=== PATIENT | female | born 1960 | race Caucasian/White ===

== ENCOUNTER 2016-06-01 15:09 | Emergency (ER) | payer OTHER ==
[~2016-06-01 15:09] MED LIST: CENTRUM SILVER PO; PRILOSEC20 MG PO; SERTRALINE HCL25 MG PO; SPIRIVA18 MCG INH; VENTOLIN HFA IN
--- NOTE | 2016-06-01 16:20 | ED NURSING NOTES ---
Clinical Report - Nurses [facility] [place] [address] 06/01/2016 15:11 Patient: TEDDY MAGANA TRIAGE Triage time 15:14. Acuity: LEVEL 3. Chief Complaint: CHEMICAL EXPOSURE. Alert. No acute distress. SANJEEV COMA SCORE: Sanjeev Coma Scale: 15- eyes open spontaneously (4); best verbal response- oriented x 4 (5); best motor response- obeys commands (6). --15:19 Erlinda Sandhu R.N. 15:13 06/01/16. BP: 129/67. HR: 100. RR: 18. O2 saturation: 97% on room air. Pain level now: 05/19. --15:19 Erlinda Sandhu R.N. 15:20 06/01/16. Temp: 98.2 F (oral). --15:21 Erlinda Sandhu R.N. Weight: 54.4 kg stated. Height/Length: 64 inches Per Patient. BMI: 20.6. --15:17 Erlinda Sandhu R.N. Medications Albuterol Sulfate HFA Inhalation 2 puffs, 2x a day. Spiriva HandiHaler Inhalation. --15:15 Erlinda Sandhu R.N. Medication/allergy information source: the patient. --15:19 Erlinda Sandhu R.N. Allergies None. --15:15 Erlinda Sandhu R.N. History Arrived by private vehicle. Historian: patient. Unaccompanied. Primary physician (August). This occurred today (at about 1330). Occurred at work ([facility] [employer]). ( flushed her eyes for about 5 minutes, then rinsed at eye station for 5 more min). She has had a headache and eye discomfort. ( eyes feel "dry"). Trauma activation: Pre-hospital notification of patient arrival was not received. PAST MEDICAL HX: The patient is post-menopausal. SOCIAL HX: Heavy tobacco smoker- 1 pack per day. No alcohol use or drug use. FALL RISK ASSESSMENT: Fall risk assessment completed. No fall risk identified. FUNCTIONAL ASSESSMENT: Functional assessment: no impairments noted. LEARNING NEEDS ASSESSMENT: The learning needs assessment revealed no barriers. --15:19 Erlinda Sandhu R.N. Assessment GENERAL / NEURO / PSYCH: Alert. Oriented X 4. Appears in no acute distress. Patient appears calm and cooperative. RESPIRATORY: Respirations not labored. SKIN: Skin is warm and dry. --15:19 Erlinda Sandhu R.N. Interventions ID band on patient. To treatment room. --15:19 Erlinda Sandhu R.N. PHYSICAL ASSESSMENT 15:19 06/01/16. Ambulatory to room. GENERAL / NEURO / PSYCH: Alert. Oriented X 4. Appears in no acute distress. RESPIRATORY: Respirations not labored. SKIN: Skin is warm and dry. --15:19 Erlinda Sandhu R.N. 15:40 06/01/16. HEENT: Visual acuity with corrective lenses: left eye 20/15; right eye 20/20; both eyes 20/15. --15:40 Dayana Beavers. NURSING PROGRESS NOTES 15:20 06/01/16. Call light placed in reach. Side rails up x 1. Bed placed in lowest position. Brakes of bed on. --15:20 Erlinda Sandhu R.N. DISPOSITION / DISCHARGE Departure time: 1626. Condition at departure: improved. No learning barriers present. Discharge instructions provided and reviewed with the patient. Reviewed referral to family practice for followup. Verbalized understanding. Written instructions provided. The patient was discharged home. She left the Emergency Department ambulatory and via (back to work here at the [employer]). --16:29 Kandi Strange R.N. 16:26 06/01/16. BP: 118/80. HR: 86. RR: 18. O2 saturation: 97%. Pain level now: 0/10. --16:29 Kandi Strange R.N. Locked/Released at 06/01/2016 16:29 by Kandi Strange R.N.
--- NOTE | 2016-06-01 16:20 | ED CLINICAL REPORT ---
Clinical Report - Physicians/Mid Levels [facility] [address] [place] [address] 06/01/2016 15:11 Patient: TEDDY MAGANA Time Seen: 15:13. Arrived- By private vehicle. Historian- patient. HISTORY OF PRESENT ILLNESS Chief Complaint: EYE BURNING chemical exposure. This started just prior to arrival, involves the right and left eye and is characterized as mild. It is not still present. The patient sustained injury. This occurred at work. She has had chemical exposure (PT was using a sodium hydroxide cleaning solution, which splashed in her eyes. Pt states she immediately washed her face and irrigated her eyes, and that her eyes feel fairly good now. No visual changes. No contact lenses. Pt wears glasses for both near and distant vision.). No eye pain, eye discomfort, eye burning or eye redness. No eye irritation or eye discharge, eye matting, eye itching or eyelid swelling. No photophobia, blurred vision, double vision or decreased vision. Patient denies injury to the head, face or neck. REVIEW OF SYSTEMS No fever, sore throat or cough. All systems otherwise negative, except as recorded above. PAST HISTORY Problems: Peripheral Arterial Occlusive Disease. Anxiety Reaction. Asthma. Emphysema. COPD - Chronic Obstructive Pulmonary Disease. Additional Surgeries: Back Surgery. Polyps. Medications: Albuterol Sulfate HFA Inhalation 2 puffs, 2x a day. Spiriva HandiHaler Inhalation. Allergies: None. SOCIAL HISTORY Smoker- current status unknown. No alcohol use or drug use. ADDITIONAL NOTES The nursing notes have been reviewed. PHYSICAL EXAM Vital Signs: 06/01/2016 15:20 Temp: 98.2 F. 06/01/2016 15:13 BP: 129/67. HR: 100. RR: 18. O2 saturation: 97%. Pain level now: 2/10. Have been reviewed. Appearance: Alert. Oriented X3. No acute distress. HEENT: Nose normal. Head appears normal to external inspection. Rt Eye: Right eye exam normal. No conjunctival edema or fluorescein dye uptake. Conjunctiva not injected. Eyes: Visual acuity noted- see nurse's notes. Right and left cornea examined with fluorescein stain. Eyelids appear normal to inspection. Conjunctivae and sclerae appear normal to inspection. Corneas appear normal to inspection. Pupils equal, round and reactive to light. Accommodation normal. EOMs intact. Periorbital areas appear normal to inspection. Eye ph 7.2 bilaterally. Lt Eye: Left eye exam normal. No conjunctival edema or fluorescein dye uptake. Conjunctiva not injected. Neck: Neck supple. CVS: Normal heart rate and rhythm. Heart sounds normal. Respiratory: No respiratory distress. Breath sounds normal. Abdomen: Nontender. No organomegaly. Skin: No rash. Extremities: Extremities negative. Neuro: Oriented X 3. Mood/affect normal. No motor deficit. No sensory deficit. LABS, X-RAYS, AND EKG Pulse Oximetry: 06/01/2016 15:13 O2 saturation: 97%. (FIO2 - room air). Interpretation: normal. PROGRESS AND PROCEDURES Course of Care: D/w pt: entire eye exam is normal. Patient counseled in person regarding the patient's stable condition, diagnosis and need for follow-up. Concerns were addressed. Old medical records reviewed. Disposition: Discharged. Condition: stable and improved. CLINICAL IMPRESSION Accidental acute chemical exposure (alkali) to the eye.No chemical conjunctivitis of the right eye or left eye. No corneal burn to the right eye or left eye. INSTRUCTIONS Warnings: GENERAL WARNINGS: Return or contact your physician immediately if your condition worsens or changes unexpectedly, if not improving as expected, or if other problems arise. Your Current Medications: CONTINUE TAKING THE FOLLOWING MEDICATIONS: Albuterol Sulfate HFA Inhalation : 2 puffs 2x a day. Spiriva HandiHaler Inhalation. Follow-up: Follow up with your doctor as needed. Understanding of the discharge instructions verbalized by patient. (Electronically signed by Lashae Hassan MD 06/05/2016 10:21)
--- NOTE | 2016-06-01 16:20 | ED NURSING NOTES ---
Clinical Report - Nurses [facility] [place] [address] 06/01/2016 15:11 Patient: TEDDY MAGANA TRIAGE Triage time 15:14. Acuity: LEVEL 3. Chief Complaint: CHEMICAL EXPOSURE. Alert. No acute distress. SANJEEV COMA SCORE: Sanjeev Coma Scale: 15- eyes open spontaneously (4); best verbal response- oriented x 4 (5); best motor response- obeys commands (6). --15:19 Erlinda Sandhu R.N. 15:13 06/01/16. BP: 129/67. HR: 100. RR: 18. O2 saturation: 97% on room air. Pain level now: 05/19. --15:19 Erlinda Sandhu R.N. 15:20 06/01/16. Temp: 98.2 F (oral). --15:21 Erlinda Sandhu R.N. Weight: 54.4 kg stated. Height/Length: 64 inches Per Patient. BMI: 20.6. --15:17 Erlinda Sandhu R.N. Medications Albuterol Sulfate HFA Inhalation 2 puffs, 2x a day. Spiriva HandiHaler Inhalation. --15:15 Erlinda Sandhu R.N. Medication/allergy information source: the patient. --15:19 Erlinda Sandhu R.N. Allergies None. --15:15 Erlinda Sandhu R.N. History Arrived by private vehicle. Historian: patient. Unaccompanied. Primary physician (August). This occurred today (at about 1330). Occurred at work ([facility]). ( flushed her eyes for about 5 minutes, then rinsed at eye station for 5 more min). She has had a headache and eye discomfort. ( eyes feel "dry"). Trauma activation: Pre-hospital notification of patient arrival was not received. PAST MEDICAL HX: The patient is post-menopausal. SOCIAL HX: Heavy tobacco smoker- 1 pack per day. No alcohol use or drug use. FALL RISK ASSESSMENT: Fall risk assessment completed. No fall risk identified. FUNCTIONAL ASSESSMENT: Functional assessment: no impairments noted. LEARNING NEEDS ASSESSMENT: The learning needs assessment revealed no barriers. --15:19 Erlinda Sandhu R.N. Assessment GENERAL / NEURO / PSYCH: Alert. Oriented X 4. Appears in no acute distress. Patient appears calm and cooperative. RESPIRATORY: Respirations not labored. SKIN: Skin is warm and dry. --15:19 Erlinda Sandhu R.N. Interventions ID band on patient. To treatment room. --15:19 Erlinda Sandhu R.N. PHYSICAL ASSESSMENT 15:19 06/01/16. Ambulatory to room. GENERAL / NEURO / PSYCH: Alert. Oriented X 4. Appears in no acute distress. RESPIRATORY: Respirations not labored. SKIN: Skin is warm and dry. --15:19 Erlinda Sandhu R.N. 15:40 06/01/16. HEENT: Visual acuity with corrective lenses: left eye 20/15; right eye 20/20; both eyes 20/15. --15:40 Dayana Beavers. NURSING PROGRESS NOTES 15:20 06/01/16. Call light placed in reach. Side rails up x 1. Bed placed in lowest position. Brakes of bed on. --15:20 Erlinda Sandhu R.N. DISPOSITION / DISCHARGE Departure time: 1626. Condition at departure: improved. No learning barriers present. Discharge instructions provided and reviewed with the patient. Reviewed referral to family practice for followup. Verbalized understanding. Written instructions provided. The patient was discharged home. She left the Emergency Department ambulatory and via (back to work here at the [employer] [employer]). --16:29 Kandi Strange R.N. 16:26 06/01/16. BP: 118/80. HR: 86. RR: 18. O2 saturation: 97%. Pain level now: 0/10. --16:29 Kandi Strange R.N. Locked/Released at 06/01/2016 16:29 by Kandi Strange R.N.
--- NOTE | 2016-06-01 16:20 | ED ORDER SUMMARY ---
..... Patient: TEDDY MAGANA OrderSheet [facility] VisitID: [id number] [address] [place] [address] 55y, F Registration Date/Time: 06/01/2016 ORDER SHEET Weight: 54.4 kg (stated) Allergies: None GENERAL ORDERS: Visual Acuity (15:30 06/01/2016 Adelaida HERNANDEZ) (15:55 Caitlyn Mcgowan) MEDICATION ORDERS: IV FLUIDS: ORDER SHEET NOTES: [Electronically signed by Kandi Strange R.N. (16:06/01/2016)] [Electronically signed by Lashae Hassan MD (10:21 06/05/2016)] [Electronically locked/signed by Kandi Strange R.N. (16:06/01/2016)]
--- NOTE | 2016-06-01 16:20 | ED ORDER SUMMARY ---
..... Patient: TEDDY MAGANA OrderSheet [facility] VisitID: [id number] [address] [place] [address] 55y, F Registration Date/Time: 06/01/2016 ORDER SHEET Weight: 54.4 kg (stated) Allergies: None GENERAL ORDERS: Visual Acuity (15:30 06/01/2016 Adelaida HERNANDEZ) (15:55 Caitlyn Mcgowan) MEDICATION ORDERS: IV FLUIDS: ORDER SHEET NOTES: [Electronically signed by Kandi Strange R.N. (16:06/01/2016)] [Electronically signed by Lashae Hassan MD (10:21 06/05/2016)] [Electronically locked/signed by Kandi Strange R.N. (16:06/01/2016)]
--- NOTE | 2016-06-05 10:22 | ED MAR SUMMARY ---
..... Medication Administration Record [facility] [address], [place] [id number] Patient: TEDDY MAGANA Visit ID: [id number] 55y, F Weight: 54.4 kg Height/Length: 64 in BMI: 20.6 ALLERGIES: None
--- NOTE | 2016-06-05 10:22 | ED MAR SUMMARY ---
..... Medication Administration Record [facility] [address] [place], [place] [id number] Patient: TEDDY MAGANA Visit ID: [id number] 55y, F Weight: 54.4 kg Height/Length: 64 in BMI: 20.6 ALLERGIES: None
--- NOTE | 2016-06-05 10:22 | ED MED RECONCILIATION SUMMARY ---
Patient: TEDDY MAGANA Medication Reconciliation Report [facility] VisitID: [id number] [address] [place] [place] [address] 55y, F Registration Date/Time: 06/01/2016 Weight: 54.4 kg Height/Length: 64 in. BMI: 20.6 ALLERGIES: None The patient's Home Medications are listed below: CONTINUE TAKING THE FOLLOWING MEDICATIONS: Albuterol Sulfate HFA Inhalation 2 puffs, 2x a day Spiriva HandiHaler Inhalation The source(s) of the original Home Medication information: patient The following Medications were given to the patient in the Emergency Department: None. The following Medications were prescribed to the patient: None.
--- NOTE | 2016-06-05 10:22 | ED DISCHARGE INSTRUCTIONS ---
Patient: TEDDY MAGANA General Instructions [facility] VisitID: [id number] [place] [address] 55y, F Registration Date/Time: 06/01/2016 Accidental acute chemical exposure (alkali) to the eye.No chemical conjunctivitis of the right eye or left eye. No corneal burn to the right eye or left eye. INSTRUCTIONS Warnings: GENERAL WARNINGS: Return or contact your physician immediately if your condition worsens or changes unexpectedly, if not improving as expected, or if other problems arise. Your Current Medications: CONTINUE TAKING THE FOLLOWING MEDICATIONS: Albuterol Sulfate HFA Inhalation : 2 puffs 2x a day. Spiriva HandiHaler Inhalation. Follow-up: Follow up with your doctor as needed. Understanding of the discharge instructions verbalized by patient. ADDITIONAL INFORMATION Chemical Exposure: Eye You had a chemical exposure to your eye. The effects can range from mild irritation to permanent scarring and vision loss. The type of chemical, how concentrated it was, whether it was an acid or a base, and how long it was in your eye will determine the degree of injury. It is common to have some irritation for the next 24 hours, even in mild cases. If the exposure was more serious, be sure to follow up as directed. The pressure inside of the eye can increase hours to days after a chemical eye injury (glaucoma). This requires prompt treatment. Watch for the symptoms below. Home Care: 1) A cold pack (ice in a plastic bag, wrapped in a towel) may be applied over the eye for 20 minutes at a time. This will reduce pain. 2) Eye drops may be prescribed to reduce irritation, inflammation and risk of infection. If no drops were prescribed, you may use Visine, Vasocon or similar [id number]-pxycnva decongestant eye drops for irritation or redness. 3 ) You may use acetaminophen (Tylenol) or ibuprofen (Motrin, Advil) to control pain, unless another medicine was prescribed. [ NOTE : If you have chronic liver or kidney disease or ever had a stomach ulcer or GI bleeding, talk with your doctor before using these medicines.] 4) If an EYE PATCH was applied: -- You may place the ice pack over the eye-patch. -- If you were given a return appointment for patch removal and re-exam, do not miss it. An eye patch should not be left in place for more than 48 hours, unless you are advised to do so by your doctor. -- DO NOT DRIVE a motor vehicle or use machinery with the patch in place. It is difficult to geomorphologist distance with only one eye. Follow Up with your doctor or this facility as directed, or if your symptoms have not improved after 24 hours. Get Prompt Medical Attention if any of the following occur: -- Increased eyelid swelling -- Increasing pain in the eye -- Increasing redness or drainage from the eye -- Failure of normal vision to return within 24-48 hours -- Continued feeling like something is in your eye, lasting more than 48 hours You have been given the following additional information: Eye Exposure, Chemical (Electronically signed by Lashae Hassan MD 06/05/2016 10:21)
--- NOTE | 2016-06-05 10:22 | ED MED RECONCILIATION SUMMARY ---
Patient: TEDDY MAGANA Medication Reconciliation Report [facility] VisitID: [id number] [address] [place] [address] 55y, F Registration Date/Time: 06/01/2016 Weight: 54.4 kg Height/Length: 64 in. BMI: 20.6 ALLERGIES: None The patient's Home Medications are listed below: CONTINUE TAKING THE FOLLOWING MEDICATIONS: Albuterol Sulfate HFA Inhalation 2 puffs, 2x a day Spiriva HandiHaler Inhalation The source(s) of the original Home Medication information: patient The following Medications were given to the patient in the Emergency Department: None. The following Medications were prescribed to the patient: None.
--- NOTE | 2016-06-05 10:22 | ED DISCHARGE INSTRUCTIONS ---
Patient: TEDDY MAGANA General Instructions [facility] VisitID: [id number] [place] [address] 55y, F Registration Date/Time: 06/01/2016 Accidental acute chemical exposure (alkali) to the eye.No chemical conjunctivitis of the right eye or left eye. No corneal burn to the right eye or left eye. INSTRUCTIONS Warnings: GENERAL WARNINGS: Return or contact your physician immediately if your condition worsens or changes unexpectedly, if not improving as expected, or if other problems arise. Your Current Medications: CONTINUE TAKING THE FOLLOWING MEDICATIONS: Albuterol Sulfate HFA Inhalation : 2 puffs 2x a day. Spiriva HandiHaler Inhalation. Follow-up: Follow up with your doctor as needed. Understanding of the discharge instructions verbalized by patient. ADDITIONAL INFORMATION Chemical Exposure: Eye You had a chemical exposure to your eye. The effects can range from mild irritation to permanent scarring and vision loss. The type of chemical, how concentrated it was, whether it was an acid or a base, and how long it was in your eye will determine the degree of injury. It is common to have some irritation for the next 24 hours, even in mild cases. If the exposure was more serious, be sure to follow up as directed. The pressure inside of the eye can increase hours to days after a chemical eye injury (glaucoma). This requires prompt treatment. Watch for the symptoms below. Home Care: 1) A cold pack (ice in a plastic bag, wrapped in a towel) may be applied over the eye for 20 minutes at a time. This will reduce pain. 2) Eye drops may be prescribed to reduce irritation, inflammation and risk of infection. If no drops were prescribed, you may use Visine, Vasocon or similar avuj-oik-uckbrom decongestant eye drops for irritation or redness. 3 ) You may use acetaminophen (Tylenol) or ibuprofen (Motrin, Advil) to control pain, unless another medicine was prescribed. [ NOTE : If you have chronic liver or kidney disease or ever had a stomach ulcer or GI bleeding, talk with your doctor before using these medicines.] 4) If an EYE PATCH was applied: -- You may place the ice pack over the eye-patch. -- If you were given a return appointment for patch removal and re-exam, do not miss it. An eye patch should not be left in place for more than 48 hours, unless you are advised to do so by your doctor. -- DO NOT DRIVE a motor vehicle or use machinery with the patch in place. It is difficult to lead cytogenetic technologist distance with only one eye. Follow Up with your doctor or this facility as directed, or if your symptoms have not improved after 24 hours. Get Prompt Medical Attention if any of the following occur: -- Increased eyelid swelling -- Increasing pain in the eye -- Increasing redness or drainage from the eye -- Failure of normal vision to return within 24-48 hours -- Continued feeling like something is in your eye, lasting more than 48 hours You have been given the following additional information: Eye Exposure, Chemical (Electronically signed by Lashae Hassan MD 06/05/2016 10:21)
== END 2016-06-01 16:26 | disposition home or self-care (01) ==
LOC: ED SRH 15:09
DX: Z77.098 Contact with and (suspected) exposure to other hazardous, chiefly nonmedicinal, chemicals (principal); J44.9 Chronic obstructive pulmonary disease, unspecified; J45.909 Unspecified asthma, uncomplicated; Z79.899 Other long term (current) drug therapy

== ENCOUNTER 2016-07-21 10:30 | Outpatient (CLI) | payer OTHER ==
--- NOTE | 2016-07-21 11:49 | DIAGNOSTIC IMAGING REPORT ---
PROCEDURE: XR CHEST 2 VIEW INDICATION: WEIGHT LOSS ABNORMAL NAUSEA SOB COUGH TECHNIQUE: PA and lateral views. COMPARISON: Chest 05/24/2015 FINDINGS: Lungs are clear. COPD. Heart and mediastinum are normal. Thorax is normal. IMPRESSION: 1. COPD. Lungs clear.
== END 2016-07-21 23:00 ==
LOC: LAB SRH 10:30
DX: J44.9 Chronic obstructive pulmonary disease, unspecified (principal); R11.0 Nausea; R63.4 Abnormal weight loss; R05 Cough
CPT/HCPCS: 90004; 90074; 90100; 90469; 92235; 95059